=== PATIENT | male | born 1990 | race Caucasian/White ===

== ENCOUNTER → 2017-01-05 | Outpatient (CLI) | payer BC ==
[~2017-01-05] MED LIST: DICLOFENAC PO; PERCOCET 5-3251 TAB
--- NOTE | ~2017-01-05 | MR164 ---
[facility] A Service of [facility] RADIOLOGY TEXT RESULTS PATIENT: THUY GARDNER LOCATION: [facility] : [birth year] UNIT #: [id number] AGE: [address]: Lesley Paiz APRN SEX: M ORDER DR: [id number] [address] [address] [id number] O MR#: [id number] #: [id number] NAME: THUY GARDNER : 1990 SEX: M STUDY DATE/TIME: 01/05/2017 11:24 UNIT: [facility] ROOM: STUDY DESCRIPTION: MR Shoulder Wo Contrast Lt Attending Physician: Lesley Paiz A.P.R.N. Referring Physician: Lesley Paiz A.P.R.N. Ordering Physician: Lesley Paiz A.P.R.N. Primary Care Physician: Counts Include [facility] This report is preliminary unless electronic signature is present. EXAM MRI left shoulder without contrast HISTORY A 26-year-old male left shoulder pain x 1.5 months. Decreased range of motion decreased strength. No prior dislocation but did play college football. COMPARISON Left shoulder films 01/01/17 FINDINGS Multiplanar multiecho imaging was performed of the left shoulder utilizing a high field magnet and dedicated protocol. Examination demonstrates extensive marrow edema within the acromion and the patient demonstrates an os acromiale. Given the extensive edema, this most likely reflects active inflammation within the acromion and extensive marrow edema across the synchondrosis. Less pronounced edema seen within the distal clavicle and this may represent a combination of early AC joint arthropathy with an inflammatory component as well as instability across the anterior acromion with secondary degenerative change. There is developing glenohumeral joint osteoarthritis with a prominent osteophyte along the inferior aspect of the humeral head. Abnormal signal seen within the posterior labrum with a small paralabral cyst along the posterior inferior quadrant of the labrum, measuring up to 9 mm. Small amount of edema is also seen in the inferomedial aspect of the humeral head as well as a small amount glenohumeral joint fluid suggesting some active inflammation. The rotator cuff appears intact without tear, but there is extensive bursal sided inflammation and a moderate amount of subacromial-subdeltoid bursitis. There is degeneration of the superior labrum. The long tendon of the biceps appears intact. [facility] A Service of [facility] RADIOLOGY TEXT RESULTS PATIENT: THUY GARDNER LOCATION: [facility] : [birth year] UNIT #: [id number] AGE: [address]: Lesley Paiz APRN SEX: M ORDER DR: Deltoid and extraarticular soft tissues appear normal. IMPRESSION 1. Extensive inflammatory changes about the shoulder. This is most prominent about the acromion and adjacent AC joint. I suspect this represents a combination of early AC joint arthropathy, but an ununited distal acromion is felt to be significant contributing factor and there is extensive marrow edema across the synchondrosis compatible an active inflammatory component. 2. Subacromial-subdeltoid bursitis. 3. Mild rotator cuff tendinopathy involving the supraspinatus and infraspinatus, particularly along the bursal surface but no high-grade tendinopathy or tear. 4. Developing glenohumeral joint osteoarthritis with small amount of edema inferior medial humeral head. Small amount glenohumeral joint fluid. Patient demonstrates a posterior labral tear with small paralabral cyst and probable degeneration of the superior labrum as well. Given the findings on conventional radiographs of the inferior subluxation of the humeral head, I suspect that there is injury to the anteroinferior labrum though this is not as well demonstrated on this non arthrographic MR but the inferior labrum does appear abnormal. There is marked subacromial-subdeltoid bursitis particularly within the anterior aspect the subacromial subdeltoid bursa. 5. Not mentioned above, there is a small amount of edema within the central deltoid probably reactive due to adjacent acromial inflammation. Dictated by... Sourav Yeh M.D. THIS IS AN ELECTRONICALLY VERIFIED REPORT Sourav Yeh M.D. at 01/06/2017 7:33 AM JMS/ea TD: 01/05/2017 23:04 JOB #: [id number] MRI CENTER REPORT Page 1 of 1
== END | disposition home or self-care (01) ==
LOC: SMRI 11:13
DX: M25.512 Pain in left shoulder (principal); M75.52 Bursitis of left shoulder; M75.82 Other shoulder lesions, left shoulder; M19.012 Primary osteoarthritis, left shoulder; S43.492A Other sprain of left shoulder joint, initial encounter; S43.432A Superior glenoid labrum lesion of left shoulder, initial encounter
CPT/HCPCS: 73221